=== PATIENT | female | born 1965 | race Caucasian/White ===

== ENCOUNTER → 2021-12-08 15:50 | Outpatient (BNVA) | payer MEDICAID, SELFPAY | PROVIDERS: PCP Family Medicine; Visit Provider Family Medicine | DX: M25.512 Pain in left shoulder (principal); M25.511 Pain in right shoulder; M50.30 Other cervical disc degeneration, unspecified cervical region; M47.812 Spondylosis without myelopathy or radiculopathy, cervical region; M25.50 Pain in unspecified joint | CPT/HCPCS: 73030; 84550; 85651; 86038; 86431 ==

== ENCOUNTER 2021-12-12 10:08 | Outpatient (CLI) | payer MEDICAID, SELFPAY ==
--- NOTE | 2021-12-12 10:22 | XR_ITS ---
WS: [email or web address] Exam: XR cervical spine 3V* [id number] Date/Time of Exam: 12/12/2021 10:45 AM Reason For Exam: M50.30 - Other cervical disc degeneration, unspecified ce... No acute fracture or dislocation. Degenerative narrowing of the C6-7 disc space. Spondylosis from C5 to C7. Mild facet DJD at all levels. The odontoid is intact. Normal paraspinal soft tissues. XR/XR cervical spine 3V* [id number] IMPRESSION: 1. Degenerative changes as noted above. 2. No acute fracture or malalignment.
--- NOTE | 2021-12-12 10:22 | XR_ITS ---
WS: [email or web address] Exam: XR lumbar spine 6V w f/e [id number] Date/Time of Exam: 12/12/2021 10:45 AM Reason For Exam: M50.30 - Other cervical disc degeneration, unspecified ce... No fracture or dislocation. Disc spaces are relatively well maintained. No significant flexion or ext ension instability was noted. Minimal facet DJD and minimal spondylosis. XR/XR lumbar spine 6V w f/e [id number] IMPRESSION: 1. No acute fracture or dislocation. No instability identified. 2. Minimal degenerative changes.
== END 2021-12-12 10:09 | disposition home or self-care (01) ==
PROVIDERS: PCP Family Medicine; Visit Provider Family Medicine
DX: M50.30 Other cervical disc degeneration, unspecified cervical region (principal); M51.36 Other intervertebral disc degeneration, lumbar region
CPT/HCPCS: 72040; 72114

== ENCOUNTER 2022-01-18 06:00 | Outpatient (RCR) | payer MEDICAID, SELFPAY | END 2022-01-24 23:59 | disposition home or self-care (01) | LOC: TPT 06:00 | PROVIDERS: PCP Family Medicine; Referring Provider Family Medicine; Visit Provider Family Medicine | DX: M25.511 Pain in right shoulder (principal); M25.512 Pain in left shoulder; M51.36 Other intervertebral disc degeneration, lumbar region | CPT/HCPCS: 97163 ==

== ENCOUNTER 2022-01-25 06:00 | Outpatient (RCR) | payer MEDICAID, SELFPAY | END 2022-02-23 23:59 | disposition home or self-care (01) | LOC: TPT 06:00 | PROVIDERS: PCP Family Medicine; Referring Provider Family Medicine; Visit Provider Family Medicine | DX: M25.511 Pain in right shoulder (principal); M25.512 Pain in left shoulder; M51.36 Other intervertebral disc degeneration, lumbar region | CPT/HCPCS: 97110; 97140 ==

== ENCOUNTER 2022-02-24 06:00 | Outpatient (RCR) | payer MEDICAID, SELFPAY | END 2022-03-26 23:59 | disposition home or self-care (01) | LOC: TPT 06:00 | PROVIDERS: PCP Family Medicine; Referring Provider Family Medicine; Visit Provider Family Medicine | DX: M25.511 Pain in right shoulder (principal); M25.512 Pain in left shoulder; M51.36 Other intervertebral disc degeneration, lumbar region | CPT/HCPCS: 97110 ==

== ENCOUNTER → 2022-03-13 10:00 | Outpatient (BNVA) | payer MEDICAID, SELFPAY | PROVIDERS: PCP Family Medicine; Visit Provider Nurse Practitioner Family | DX: Z78.0 Asymptomatic menopausal state (principal); M51.36 Other intervertebral disc degeneration, lumbar region; F32.A Depression, unspecified | CPT/HCPCS: 80053; 80061; 82306; 84443 ==

== ENCOUNTER 2022-05-29 12:43 | Outpatient (CLI) | payer BC, SELFPAY ==
--- NOTE | 2022-05-29 12:59 | CT_ITS ---
WS: [email or web address] LDCT LUNG CANCER SCREENING HISTORY: screening TECHNIQUE: Axial imaging performed from the apices to 1 cm below the costophrenic angles. Coronal and sagittal reformats are submitted with axial MIP series. All CT scans at [facility] use at least one of these dose optimization techniques: automated exposure control; mA and/or kV adjustment per patient size (includes targeted exams where dose is matched to clinical indication); or iterativ e reconstruction. DLP: 70.30 mGy.cm DIvol: Mean CTDIvol: 1.60 (mGy) COMPARISON: None available. Diagnostic quality: Satisfactory Lung Nodules: 2 mm noncalcified nodule LEFT upper lobe. No additional nodules or mass identified. No endobronchial lesions. Heart: Normal size. No pericardial effusion. A few scattered coronary artery calcifications. Other findings: None. CT/CT lung screening [id number] IMPRESSION: LUNG-RADS: 2-Benign Appearance or Behavior FOLLOW UP: 12 Month: Continue annual screening with LDCT OTHER FINDINGS (S MODIFIER): None.
== END 2022-05-29 12:44 | disposition home or self-care (01) ==
LOC: RAD 12:44
PROVIDERS: PCP Family Medicine; Visit Provider Nurse Practitioner Family
DX: Z12.2 Encounter for screening for malignant neoplasm of respiratory organs (principal); F17.200 Nicotine dependence, unspecified, uncomplicated
CPT/HCPCS: 71271

== ENCOUNTER 2022-07-12 | Outpatient (CLI) | payer BC, SELFPAY | END 2022-07-12 23:00 | disposition home or self-care (01) | LOC: RAD 07-26 10:17 | PROVIDERS: PCP Family Medicine; Visit Provider Nurse Practitioner Family | DX: R41.3 Other amnesia (principal); E55.9 Vitamin D deficiency, unspecified; E78.2 Mixed hyperlipidemia; J44.9 Chronic obstructive pulmonary disease, unspecified; F41.9 Anxiety disorder, unspecified; F32.A Depression, unspecified | CPT/HCPCS: 80053; 80061; 82607; 83721 ==

== ENCOUNTER 2022-08-14 12:41 | Outpatient (CLI) | payer BC, SELFPAY ==
--- NOTE | 2022-08-14 12:58 | MM_ITS ---
WS: [email or web address] BILATERAL 3D TOMOSYNTHESIS DIGITAL SCREENING MAMMOGRAPHY WITH CAD CLINICAL INFORMATION: screening HISTORY: Screening mammogram. No current complaints. COMPARISON: None. TECHNIQUE: Bilateral CC and MLO views. FINDINGS: Scattered fibroglandular densities bilaterally. No suspicious focal mass, asymmetry, calcifications, or architectural distortion. No evidence of malignancy. MM/[place] [id number] IMPRESSION: BI-RADS: 1-Negative FOLLOW UP: 1 Year Follow-up Recommend return to annual screening mammography.
== END 2022-08-14 12:42 | disposition home or self-care (01) ==
LOC: RAD 12:41
PROVIDERS: PCP Family Medicine; Visit Provider Nurse Practitioner Family
DX: Z12.31 Encounter for screening mammogram for malignant neoplasm of breast (principal)
CPT/HCPCS: 77063; 77067

== ENCOUNTER → 2022-10-12 13:23 | Outpatient (BNVA) | payer MEDICAID, SELFPAY | PROVIDERS: PCP Family Medicine; Visit Provider Nurse Practitioner Family | DX: E78.2 Mixed hyperlipidemia (principal); F41.9 Anxiety disorder, unspecified; F32.A Depression, unspecified | CPT/HCPCS: 80053; 80061; 83721 ==

== ENCOUNTER → 2023-04-12 11:20 | Outpatient (BNVA) | payer MEDICAID, SELFPAY | PROVIDERS: PCP Family Medicine; Visit Provider Nurse Practitioner Family | DX: R73.9 Hyperglycemia, unspecified (principal) | CPT/HCPCS: 83036 ==

== ENCOUNTER → 2023-10-11 15:37 | Outpatient (BNVA) | payer MEDICAID, SELFPAY | PROVIDERS: PCP Family Medicine; Visit Provider Nurse Practitioner Family | DX: F32.A Depression, unspecified (principal); F41.9 Anxiety disorder, unspecified; E78.2 Mixed hyperlipidemia; R73.9 Hyperglycemia, unspecified; E55.9 Vitamin D deficiency, unspecified; J32.0 Chronic maxillary sinusitis; J44.9 Chronic obstructive pulmonary disease, unspecified | CPT/HCPCS: 80053; 80061; 82306; 83036; 85025 ==

== ENCOUNTER → 2024-04-10 13:45 | Outpatient (BNVA) | payer MEDICAID, SELFPAY | PROVIDERS: PCP Family Medicine; Visit Provider Nurse Practitioner Family | DX: F33.41 Major depressive disorder, recurrent, in partial remission; F41.9 Anxiety disorder, unspecified; E78.2 Mixed hyperlipidemia; R73.9 Hyperglycemia, unspecified; E55.9 Vitamin D deficiency, unspecified; F17.200 Nicotine dependence, unspecified, uncomplicated; Z78.0 Asymptomatic menopausal state; M51.36 Other intervertebral disc degeneration, lumbar region; M50.30 Other cervical disc degeneration, unspecified cervical region; M51.34 Other intervertebral disc degeneration, thoracic region | CPT/HCPCS: 80053; 80061; 82306; 85025 ==

== ENCOUNTER → 2024-05-12 13:43 | Outpatient (BNVA) | payer MEDICAID, SELFPAY | PROVIDERS: PCP Family Medicine; Visit Provider Nurse Practitioner Family | DX: N39.0 Urinary tract infection, site not specified | CPT/HCPCS: 81000 ==

== ENCOUNTER → 2024-09-03 09:29 | Outpatient (BNVA) | payer MEDICAID, SELFPAY | PROVIDERS: PCP Nurse Practitioner Family; Visit Provider Nurse Practitioner Family | DX: R73.03 Prediabetes; E55.9 Vitamin D deficiency, unspecified | CPT/HCPCS: 80053; 80061; 82306; 82607; 83036; 84443; 85025 ==

== ENCOUNTER → 2024-12-01 14:01 | Outpatient (BNVA) | payer MEDICARE, MEDICAID, SELFPAY | PROVIDERS: PCP Nurse Practitioner Family; Visit Provider Nurse Practitioner Family | DX: E78.2 Mixed hyperlipidemia (principal); R73.03 Prediabetes; R73.9 Hyperglycemia, unspecified | CPT/HCPCS: 80053; 80061; 83036; 85025 ==

== ENCOUNTER 2024-12-19 09:02 | Outpatient (CLI) | payer MEDICARE, SELFPAY ==
--- NOTE | 2024-12-19 10:00 | CT_ITS ---
WS: [email or web address] LDCT LUNG CANCER SCREENING HISTORY: F17.210 - Nicotine dependence, cigarettes, uncomplicated TECHNIQUE: Axial imaging performed from the apices to 1 cm below the costophrenic angles. Coronal and sagittal reformats are submitted with axial MIP series. All CT scans at [facility] use at least one of these dose optimization techniques: automated exposure control; mA and/or kV adjustment per patient size (includes targeted exams where dose is matched to clinical indication); or iterative reconstruction. DLP: 61.91 mGy.cm DIvol: Mean CTDIvol: 1.20 (mGy) COMPARISON: 05/29/2022 Diagnostic quality: Satisfactory Lungs: Mild pulmonary hyperinflation. No change 2 mm nodule peripheral LEFT upper lobe. 2 mm scar in the anterior RIGHT upper lobe. Benign granuloma medial RIGHT lung base. No endobronchial lesions. Heart: Normal size heart with no pericardial effusion.. Other findings: Mild atherosclerosis aorta. Normal size pulmonary artery. No adenopathy. Small hiatal hernia. No adrenal mass. CT/CT lung screening [id number] IMPRESSION: LUNG-RADS: 2-Benign Appearance or Behavior FOLLOW UP: 12 Month: Continue annual screening with LDCT OTHER FINDINGS (S MODIFIER): None.
== END 2024-12-19 09:03 | disposition home or self-care (01) ==
PROVIDERS: PCP Nurse Practitioner Family; Visit Provider Nurse Practitioner Family
DX: Z12.2 Encounter for screening for malignant neoplasm of respiratory organs (principal); F17.210 Nicotine dependence, cigarettes, uncomplicated; R91.8 Other nonspecific abnormal finding of lung field; R91.1 Solitary pulmonary nodule; J98.4 Other disorders of lung; J84.10 Pulmonary fibrosis, unspecified; I70.0 Atherosclerosis of aorta; K44.9 Diaphragmatic hernia without obstruction or gangrene
CPT/HCPCS: 71271

== ENCOUNTER → 2024-12-31 10:32 | Outpatient (BNVA) | payer MEDICARE, SELFPAY | PROVIDERS: PCP Nurse Practitioner Family; Visit Provider Nurse Practitioner Family | DX: R39.9 Unspecified symptoms and signs involving the genitourinary system (principal) | CPT/HCPCS: 81000; 87077; 87086; 87184 ==

== ENCOUNTER → 2025-01-07 12:04 | Outpatient (BNVA) | payer MEDICARE, SELFPAY | PROVIDERS: PCP Nurse Practitioner Family; Visit Provider Nurse Practitioner Family | DX: N39.0 Urinary tract infection, site not specified (principal) | CPT/HCPCS: 81003; 87086 ==

== ENCOUNTER 2025-04-01 13:06 | Outpatient (CLI) | payer MEDICARE, SELFPAY ==
--- NOTE | 2025-04-01 13:20 | MM_ITS ---
WS: [email or web address] BILATERAL 3D TOMOSYNTHESIS DIGITAL SCREENING MAMMOGRAPHY WITH CAD CLINICAL INFORMATION: Z12.39 - Encounter for other screening for malignant neop... HISTORY: Screening mammogram. No current complaints. COMPARISON: 2021 TECHNIQUE: Bilateral CC and MLO views. FINDINGS: Scattered fibroglandular densities bilaterally. No suspicious focal mass, asymmetry, calcifications, or architectural distortion. No evidence of malignancy. MM/MM scr BI tomosynthesis [id number] IMPRESSION: DENSITY: There are scattered areas of fibroglandular density. BI-RADS: 1 - Negative. FOLLOW UP: 1 Year Follow-up Recommend return to annual screening mammography.
== END 2025-04-01 13:07 | disposition home or self-care (01) ==
LOC: RAD 13:07
PROVIDERS: PCP Nurse Practitioner Family; Visit Provider Nurse Practitioner Family
DX: Z12.31 Encounter for screening mammogram for malignant neoplasm of breast (principal)
CPT/HCPCS: 77063; 77067

== ENCOUNTER → 2025-04-15 12:49 | Outpatient (BNVA) | payer MEDICARE, SELFPAY | PROVIDERS: PCP Nurse Practitioner Family; Visit Provider Nurse Practitioner Family | DX: R73.03 Prediabetes (principal); E78.2 Mixed hyperlipidemia; R73.9 Hyperglycemia, unspecified | CPT/HCPCS: 80053; 80061; 83036; 84443; 85025 ==

== ENCOUNTER 2025-04-21 15:40 | Outpatient (CLI) | payer MEDICARE, SELFPAY ==
[2025-04-21] MEDS: iohexol 350 mg/mL 500 mL Btl (per mL) PO ×2 (16:46)
--- NOTE | 2025-04-21 17:00 | CT_ITS ---
WS: [email or web address] CT ABDOMEN AND PELVIS WITH CONTRAST HISTORY: R10.9 - Unspecified abdominal pain TECHNIQUE: Imaging performed of the abdomen and pelvis with IV contrast. Single phase imaging of the abdomen. Coronal and sagittal reformats are submitted. All CT scans at [facility] use at least one of these dose optimization techniques: automated exposure control; mA and/or kV adjustment per patient size (includes targeted exams where dose is matched to clinical indication); or iterative reconstruction. IV CONTRAST: Omnipaque 350; 100 mL IV. Oral contrast: Yes. DLP: 479.53 mGy.cm COMPARISON: None available. Lower thorax: Lung bases are clear. Heart is normal size. Small hiatal hernia. Liver/biliary system: Normal size with no intrahepatic dilatation. Gallbladder: Normal. No gallstones or wall thickening. No pericholecystic fluid. Pancreas: Normal size pancreas and pancreatic duct. No adjacent inflammation. Spleen: Normal size spleen. No mass or infarct. Adrenal glands: Normal. Right kidney: Normal. Left kidney: Normal. Aorta: Mild atherosclerosis with no aneurysm. 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 No obstruction. Patent SMA. There is a mixture of calcification in intraluminal thrombus within the aorta. Iliac arteries are patent. Lymphadenopathy: None. Free fluid: None. GI tract: Stomach is well distended with oral contrast. No small bowel obstruction. Normal appendix. Constipation. Descending and sigmoid diverticular disease without acute diverticulitis. Abdominal wall: Fat-containing ventral abdominal wall hernia. Pelvis: No free fluid or adenopathy within the pelvis. Uterus is atrophic and midline. Bones: Mild anterior wedging of T11. There is a mixed sclerotic and lytic bone lesion centered in the LEFT lesser trochanter which needs to be further evaluated. The cortex of this lesion appears intact and this does appear to be a nonaggressive bone lesion. May be an benign exostosis. This was also probably present on the prior lumbar spine of 12/12/2021 but only minimally included in the visualized. Consider follow-up LEFT hip CT. CT/CT abdomen pelvis w con* [id number] IMPRESSION: 1. No acute abdominal or pelvic abnormalities. 2. No GI tract obstruction. 3. Distal colon diverticulosis without acute diverticulitis. 4. Atherosclerosis aorta. Calcified plaque and intraluminal soft plaque. 5. Mild aneurysmal dilatation celiac axis. 6. No GI tract ischemia. 7. No renal obstruction. 8. Sclerotic and lytic bone lesion involving the LEFT hip. Recommend follow-up LEFT hip CT. This may be a bony exostosis or enchondroma. Nuclear medicine bon e scan may also be of benefit.
== END 2025-04-21 15:41 | disposition home or self-care (01) ==
LOC: RAD 15:42
PROVIDERS: PCP Nurse Practitioner Family; Visit Provider Nurse Practitioner Family
DX: R10.9 Unspecified abdominal pain (principal); K57.30 Diverticulosis of large intestine without perforation or abscess without bleeding; I70.0 Atherosclerosis of aorta; I25.84 Coronary atherosclerosis due to calcified coronary lesion; I72.8 Aneurysm of other specified arteries; R93.6 Abnormal findings on diagnostic imaging of limbs; R93.89 Abnormal findings on diagnostic imaging of other specified body structures
CPT/HCPCS: 74177

== ENCOUNTER 2025-05-08 08:26 | Outpatient (CLI) | payer MEDICARE, SELFPAY ==
--- NOTE | 2025-05-08 08:45 | CT_ITS ---
WS: [email or web address] CT LEFT HIP WITH CONTRAST HISTORY: R22.42 - Localized swelling, mass and lump, left lower limb Technique: All CT scans at [facility] use at least one of these dose optimization techniques: automated exposure control; mA and/or kV adjustment per patient size (includes targeted exams where dose is matched to clinical indication); or iterative reconstruction. DLP: 284.02 mGy.cm COMPARISON: 04/21/2025, lumbar spine 12/12/2021 Broad-based bony proliferation extends from the posterior LEFT femoral neck junction and courses laterally with extension to the lesser trochanter. The entire mixed mass measures 3.8 x 3.9 x 4.7 cm and contains normal-appearing marrow and sclerotic changes. The overlying cortex is intact. There is no a ssociated soft tissue component. There is no edema or fluid. This is most likely a broad-based exostosis. Small benign-appearing lymph nodes in the LEFT inguinal region. No significant narrowing of the hip joint. No osseous destruction. No prior fracture. No muscle atrophy or edema. There are a few small diverticula in the sigmoid colon without diverticulitis. CT/CT hip LT w con [id number] IMPRESSION: 1. Broad-based bony overgrowth extending from the posterior LEFT hip. Bony bishop wth into the femoral neck and lesser trochanter. The entire exostosis measures 3.8 x 3.9 x 4.7 cm. No fracture or soft tissue component. 2. No edema. 3. If this is a painful exostosis evaluation by orthopedics should be consider ed. Based upon its position the bony proliferation may be causing some discomfo rt or radiculopathy.
[2025-05-08] MEDS: iohexol 350 mg/mL 500 mL Btl (per mL) IV (08:52)
== END 2025-05-08 08:27 | disposition home or self-care (01) ==
LOC: RAD 08:27
PROVIDERS: PCP Nurse Practitioner Family; Visit Provider Nurse Practitioner Family
DX: R22.42 Localized swelling, mass and lump, left lower limb (principal)
CPT/HCPCS: 73701

== ENCOUNTER → 2025-05-27 13:11 | Outpatient (BNVA) | payer MEDICARE, SELFPAY | PROVIDERS: PCP Nurse Practitioner Family; Visit Provider Physician Assistant | DX: M25.552 Pain in left hip (principal); M25.852 Other specified joint disorders, left hip; M89.9 Disorder of bone, unspecified | CPT/HCPCS: 73502; 99203; 99213 ==

== ENCOUNTER 2025-07-02 12:59 | Outpatient (CLI) | payer MEDICARE, MEDICAID, SELFPAY ==
--- NOTE | 2025-07-02 13:45 | MR_ITS ---
WS: [email or web address] MRI LEFT HIP WITHOUT CONTRAST. COMPARISON: CT 05/08/2025, radiograph 05/27/2025. Multiplanar, multisequence imaging is performed without contrast. Broad-based exophytic exostosis is noted from the posterior medial LEFT hip. Broad-based attachment to the lesser trochanter and the femoral neck. This is a mixed signal mass measuring 3.7 x 3.2 and extending over a length of 4.1 cm. The overlying cortex is intact. Low signal centrally on the T1 sequences. This low signal is increased on the T2 sequences. Low signal is likely due to calcifications. There is a very small amount of adjacent edema surrounding the bony exostosis. This exostosis is in contact with the obturator externus muscle and the quadratus femoris muscle at the hip. No muscle atrophy is appreciated. The sacral nerve roots very closely associated with the posterior portion of this exostosis. There is no edema within the sciatic nerve. The RIGHT hip was negative. No additional soft tissues abnormality. MR/MR hip LT con* [id number] IMPRESSION: 1. 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 There is some mass effect upon the muscles of the hip including the obt urator externus and the quadratus femoris muscle. Sciatic nerve is closely asso ciated with this mass but there is no evidence for neuritis. 2. Small amount of fluid adjacent to the exostosis. 3. There is a risk for transformation from an osteochondroma or chondrosarcoma . Due to its large size and adjacent nerves and displacement of the muscles con membership solicitor surgical evaluation and removal.
== END 2025-07-02 13:00 | disposition home or self-care (01) ==
PROVIDERS: PCP Nurse Practitioner Family; Visit Provider Physician Assistant
DX: M25.852 Other specified joint disorders, left hip (principal); M25.752 Osteophyte, left hip; M25.452 Effusion, left hip
CPT/HCPCS: 73721

== ENCOUNTER → 2025-07-08 10:09 | Outpatient (BNVA) | payer MEDICARE, MEDICAID, SELFPAY | PROVIDERS: PCP Nurse Practitioner Family; Visit Provider Student in an Organized Health Care Education/Training Program | DX: D16.22 Benign neoplasm of long bones of left lower limb (principal); M25.852 Other specified joint disorders, left hip | CPT/HCPCS: 99213 ==

== ENCOUNTER → 2025-08-10 13:32 | Outpatient (BNVA) | payer MEDICARE, MEDICAID, SELFPAY | PROVIDERS: PCP Nurse Practitioner Family; Visit Provider Nurse Practitioner Family | DX: E55.9 Vitamin D deficiency, unspecified (principal); F33.41 Major depressive disorder, recurrent, in partial remission; E78.2 Mixed hyperlipidemia; R73.03 Prediabetes | CPT/HCPCS: 80053; 80061; 82306; 82607; 83036; 84443; 85025 ==